=== PATIENT | male | born 1985 | race Caucasian/White ===

== ENCOUNTER 2017-01-30 19:11 | Emergency (ER) | payer OTHER ==
--- NOTE | 2017-01-30 20:51 | ED ORDER SUMMARY ---
..... Patient: CAITLYN SOOD [facility] VisitID: [id number] [place] [address] 31y, M Registration Date/Time: 01/30/2017 ORDER SHEET Weight: 68.0 kg (stated) Allergies: No Known Drug Allergy GENERAL ORDERS: GC/Chlamydia, Urine (Urine, Clean Catch) (urine) Urgent (19:40 01/30/2017 HBivens A.R.N.P.) (Ack 19:42 PWeiler ER Tech1) (19:43 PWeiler ER Tech1) UA-Culture if indicated Urgent (19:41 01/30/2017 HBivens A.R.N.P.) (Ack 19:42 PWeiler ER Tech1) (19:42 PWeiler ER Tech1) MEDICATION ORDERS: Rocephin IM 250 mg (NOW) (19:41 01/30/2017 HBivens A.R.N.P.) (20:02 LWhaljamshid R.N.) IV FLUIDS: ORDER SHEET NOTES: [Electronically signed by Martine Montilla.R.N.P. (21:20 01/30/2017)] [Electronically signed by Celina Christian R.N. (22:59 01/30/2017)] [Electronically locked/signed by Celina Christian R.N. (22:59 01/30/2017)]
--- NOTE | 2017-01-30 20:51 | ED CLINICAL REPORT ---
Clinical Report - Physicians/Mid Levels [facility] [address] [place] [address] 01/30/2017 19:12 Patient: CAITLYN SOOD Time Seen: 1925; initial patient contact, initial documentation, patient care assumed. Arrived- By private vehicle. Historian- patient. HISTORY OF PRESENT ILLNESS Chief Complaint: DYSURIA. This started about 2 - 3 days ago and is still present. The problem is described as mild. The patient has had a scant amount of thick penile discharge (green). He has had burning discomfort with urination. It is described as " painful " and has occurred after urination. No urinary frequency, genital lesion, testicular pain, urgency of urination or flank pain. No Dominguez catheter problem or inguinal swelling. Able to void. Not voiding only small amounts. The patient has had unprotected intercourse with multiple partners (got tested for std's approx x2 years ago, clear, has had x2 partners since). He has not had an exposure to a sexually transmitted disease. No homosexual activity. Similar symptoms previously: None. Recent medical care: Not recently seen/assessed. REVIEW OF SYSTEMS No fever, flank pain, hematuria, abdominal pain or vomiting. No diarrhea, chest pain or difficulty breathing. All systems otherwise negative, except as recorded above. PAST HISTORY See nurses notes. ( PROBLEMS: Fractured Phalanx (Finger). Herditary Spherocytosis. --19:18 Celina Christian, R.N. ADDITIONAL SURGERIES: Cholecystectomy. --19:18 Celina Christian, R.N.). SOCIAL HISTORY Never smoker. Occasional alcohol use. No drug use. No recent travel. Is a local resident. FAMILY HISTORY Negative. ADDITIONAL NOTES The nursing notes have been reviewed with agreement regarding the chief complaint, HPI, ROS, PMH and patient medications and allergies. PHYSICAL EXAM Vital Signs: 01/30/2017 19:18 BP: 158/96. HR: 86. RR: 18. O2 saturation: 100%. Temp: 98.2 F. Have been reviewed as abnormal and appear to be correct. Hypertensive. Heart rate normal. Respiratory rate normal. Temperature normal. Oxygen saturation normal. Appearance: Alert. Oriented X3. No acute distress. ENT: Normal external inspection. Pharynx normal. Neck: Neck supple. CVS: Heart sounds normal. Respiratory: No respiratory distress. Breath sounds normal. Abdomen: Soft and nontender. Bowel sounds normal. No organomegaly. No mass. Back: Normal external inspection. : Testes descended. Abnormal genitalia. A scant amount of clear urethral discharge. 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 Skin: Skin warm and dry. Normal skin color. No rash. Normal skin turgor. Extremities: Extremities exhibit normal ROM. No lower extremity edema. Neuro: Oriented X 3. No motor deficit. No sensory deficit. LABS, X-RAYS, AND EKG Laboratory Tests: UA-Culture if indicated: (GAURAV: 01/30/2017 19:24) ( MsgRcvd 01/30/2017 20:27) Final results Test Result Flag Units (Reference) URINE COLOR LIGHT YELLOW URINE APPEARANCE CLEAR URINE GLUCOSE NEGATIVE (NEGATIVE) URINE BILIRUBIN NEGATIVE (NEGATIVE) URINE KETONE NEGATIVE (NEGATIVE) URINE SPECIFIC GRAVITY <= 1.005 L (1.010-1.030) URINE PH 7.5 (5.0-8.0) URINE PROTEIN NEGATIVE (NEGATIVE) URINE UROBILINOGEN 1.0 EU/dL (0.2-1.0) URINE NITRITE NEGATIVE (NEGATIVE) URINE BLOOD NEGATIVE (NEGATIVE) URINE LEUK ESTERASE NEGATIVE (NEGATIVE) URINE RBC NONE SEEN rbc/hpf (0-1) URINE WBC RARE wbc/hpf (0-1) URINE EPITHELIAL CELLS RARE EPI/hpf (0-5) URINE BACTERIA NONE SEEN (NONE SEEN) URINE COMMENT CULT NOT INDICATED URINE CULTURES ARE SET-UP BASED ON THE FOLLOWING CRITERIA:POSITIVE NITRITEPOSITIVE LEUKOCYTE ESTERASEGREATER THAN 10 WHITE BLOOD CELLSMODERATE (2+) OR GREATER BACTERIA . PROGRESS AND PROCEDURES Course of Care: tx options discussed with std tx now or waiting for urine cx, decided to pretreat. Patient counseled in person regarding the patient's stable condition, test results and diagnosis. 2039. Differential Diagnosis: Other possible considerations: uti, std, pyelo, urosepsis, prostatitis, epidydimitis. Above considerations are based on history, physical exam, reassessment and laboratory data. Differential diagnosis was discussed with patient. Disposition: Discharged home in good and improved condition (20:51). Condition: good and stable. CLINICAL IMPRESSION Acute nonspecific urethritis INSTRUCTIONS Warnings: GENERAL WARNINGS: Return or contact your physician immediately if your condition worsens or changes unexpectedly, if not improving as expected, or if other problems arise. Specifically return if problem worsens. Prescription Medications: Zithromax 500 mg tablets: take 2 orally today, followed by 2 orally every day. Total course 1 day. No refills. Cipro 500 mg: take 1 tab orally every 12 hours for 10 days. Dispense twenty (20). No refills. Substitution is permissible. Follow-up: Follow up with your doctor in about three days as needed. Call for an appointment. Summary of care provided to patient. Understanding of the discharge instructions verbalized by patient. (Electronically signed by Martine Montilla A.R.N.P. 01/30/2017 21:20)
--- NOTE | 2017-01-30 20:51 | ED ORDER SUMMARY ---
..... Patient: CAITLYN SOOD OrderSheet [facility] VisitID: [id number] [place] [address] 31y, M Registration Date/Time: 01/30/2017 ORDER SHEET Weight: 68.0 kg (stated) Allergies: No Known Drug Allergy GENERAL ORDERS: GC/Chlamydia, Urine (Urine, Clean Catch) (urine) Urgent (19:40 01/30/2017 HBivens A.R.N.P.) (Ack 19:42 PWeiler ER Tech1) (19:43 PWeiler ER Tech1) UA-Culture if indicated Urgent (19:41 01/30/2017 HBivens A.R.N.P.) (Ack 19:42 PWeiler ER Tech1) (19:42 PWeiler ER Tech1) MEDICATION ORDERS: Rocephin IM 250 mg (NOW) (19:41 01/30/2017 HBivens A.R.N.P.) (20:02 LWhaljamshid R.N.) IV FLUIDS: ORDER SHEET NOTES: [Electronically signed by Martine Montilla.R.N.P. (21:20 01/30/2017)] [Electronically signed by Celina Christian R.N. (22:59 01/30/2017)] [Electronically locked/signed by Celina Christian R.N. (22:59 01/30/2017)]
--- NOTE | 2017-01-30 20:51 | ED NURSING NOTES ---
Clinical Report - Nurses [facility] [place] [address] 01/30/2017 19:12 [id number] Triage time 19:18 Jan 30 2017. Acuity: LEVEL 3. Chief Complaint: ABDOMINAL PAIN. SEN COMA SCORE: Sen Coma Scale: 15- eyes open spontaneously (4); best verbal response- oriented x 4 (5); best motor response- obeys commands (6). --19:25 Celina Christian R.N. 19:18 01/30/17. BP: 158/96. HR: 86. RR: 18. O2 saturation: 100%. Temp: 98.2 F. Pain level now 2/10. --19:25 Celina Christian R.N. Weight: 68 kg stated. Height/Length: 72 inches Per Patient. BMI: 20.3. --19:23 Celina Christian R.N. Medications None. --19:22 Celina Christian R.N. Allergies No Known Drug Allergy. --19:18 Celina Christian R.N. History Arrived by private vehicle. Historian: patient. This started today. ( Pain with urination at the end of urination he states he feels a stinging pain.). He has had abdominal pain. No nausea, vomiting, diarrhea, constipation or fever. 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 PAST MEDICAL HX: Gallstones. No history of diabetes mellitus. No history of gastroesophageal reflux disease or peptic ulcer disease. Immunizations: up-to-date. ( Does have unprotected sex but with same partner for one year.). SOCIAL HX: Never smoker. Alcohol use; consumes beer weekly. No drug use. No known contact with a sick individual. SELF HARM ASSESSMENT: A self harm assessment was performed. The patient answered "no" to the question "Have you recently felt down, depressed, or hopeless?" and "Do you have thoughts of harming or killing yourself?". FALL RISK ASSESSMENT: Fall risk assessment completed. No fall risk identified. NUTRITIONAL RISK ASSESSMENT: The nutritional risk assessment revealed no deficiencies. FUNCTIONAL ASSESSMENT: Functional assessment: no impairments noted. LEARNING NEEDS ASSESSMENT: The learning needs assessment revealed no barriers. ABUSE ASSESSMENT: Abuse assessment: (yes) The patient was asked "Do you feel safe in your home?". SKIN INTEGRITY ASSESSMENT: Skin integrity risk assessment completed. No skin integrity risk identified. --19:25 Celina Christian R.N. PROBLEMS: Fractured Phalanx (Finger). Herditary Spherocytosis. --19:18 Celina Christian R.N. ADDITIONAL SURGERIES: Cholecystectomy. --19:18 Celina Christian R.N. Interventions ID band on patient. --19:25 Celina Christian R.N. PHYSICAL ASSESSMENT Ambulatory to room. ( States possible discharge from penis unsure if it is a little void left over or discharge.). GENERAL / NEURO / PSYCH: Alert. Oriented X 4. Appears in no acute distress. HEENT: Mucous membranes are pink. RESPIRATORY: Respirations not labored. Breath sounds within normal limits. CVS: Normal sinus rhythm noted. Capillary refill less than 2 seconds. GI / : Abdomen soft and nontender. Bowel sounds within normal limits. ( Last BM today and normal). SKIN: Skin is warm and dry. --19:27 Celina Christian R.N. NURSING PROGRESS NOTES The initial plan of care for this patient includes an assessment with efforts to address patient positioning and appropriate ambient lighting; impairment of the genitourinary system. Pulse oximeter and NIBP monitor placed on patient. Patient gowned. Head of bed elevated 90 degrees. Reassurance given. Call light placed in reach. Side rails up x 1. Bed placed in lowest position. Brakes of bed on. --19:28 Celina Christian R.N. 19:28 01/30/17. BP: 144/89. HR: 87. RR: 18. O2 saturation: 100%. --19:29 Celina Christian R.N. 20:02 01/30/2017 Rocephin (CefTRIAXone Sodium) IM 250 mg given. Given in the right deltoid. Allergies verified and confirmed 5 rights. --20:02 Celina Christian R.N. DISPOSITION / DISCHARGE Departure time: 21:04 Jan 30 2017. Condition at departure: improved. No learning barriers present. Discharge instructions provided and reviewed with the patient. Reviewed warnings. Reviewed medication(s). Treatments reviewed. Reviewed referrals. Patient verbalized understanding. Written instructions provided in Divehi. The patient was discharged home. He left the Emergency Department ambulatory and via private vehicle. Patient driving. --21:04 Celina Christian R.N. 21:03 01/30/17. BP: 136/88. HR: 88. RR: 18. O2 saturation: 100%. Temp: 98.4 F. Pain level now 12/14. --21:04 Celina Christian R.N. Locked/Released at 01/30/2017 22:59 by Celina Christian R.N.
--- NOTE | 2017-01-30 20:51 | ED NURSING NOTES ---
Clinical Report - Nurses [facility] [place] [address] 01/30/2017 19:12 [id number] Triage time 19:18 Jan 30 2017. Acuity: LEVEL 3. Chief Complaint: ABDOMINAL PAIN. SEN COMA SCORE: Sen Coma Scale: 15- eyes open spontaneously (4); best verbal response- oriented x 4 (5); best motor response- obeys commands (6). --19:25 Celina Christian R.N. 19:18 01/30/17. BP: 158/96. HR: 86. RR: 18. O2 saturation: 100%. Temp: 98.2 F. Pain level now 2/10. --19:25 Celina Christian R.N. Weight: 68 kg stated. Height/Length: 72 inches Per Patient. BMI: 20.3. --19:23 Celina Christian R.N. Medications None. --19:22 Celina Christian R.N. Allergies No Known Drug Allergy. --19:18 Celina Christian R.N. History Arrived by private vehicle. Historian: patient. This started today. ( Pain with urination at the end of urination he states he feels a stinging pain.). He has had abdominal pain. No nausea, vomiting, diarrhea, constipation or fever. 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 PAST MEDICAL HX: Gallstones. No history of diabetes mellitus. No history of gastroesophageal reflux disease or peptic ulcer disease. Immunizations: up-to-date. ( Does have unprotected sex but with same partner for one year.). SOCIAL HX: Never smoker. Alcohol use; consumes beer weekly. No drug use. No known contact with a sick individual. SELF HARM ASSESSMENT: A self harm assessment was performed. The patient answered "no" to the question "Have you recently felt down, depressed, or hopeless?" and "Do you have thoughts of harming or killing yourself?". FALL RISK ASSESSMENT: Fall risk assessment completed. No fall risk identified. NUTRITIONAL RISK ASSESSMENT: The nutritional risk assessment revealed no deficiencies. FUNCTIONAL ASSESSMENT: Functional assessment: no impairments noted. LEARNING NEEDS ASSESSMENT: The learning needs assessment revealed no barriers. ABUSE ASSESSMENT: Abuse assessment: (yes) The patient was asked "Do you feel safe in your home?". SKIN INTEGRITY ASSESSMENT: Skin integrity risk assessment completed. No skin integrity risk identified. --19:25 Celina Christian R.N. PROBLEMS: Fractured Phalanx (Finger). Herditary Spherocytosis. --19:18 Celina Christian R.N. ADDITIONAL SURGERIES: Cholecystectomy. --19:18 Celina Christian R.N. Interventions ID band on patient. --19:25 Celina Christian R.N. PHYSICAL ASSESSMENT Ambulatory to room. ( States possible discharge from penis unsure if it is a little void left over or discharge.). GENERAL / NEURO / PSYCH: Alert. Oriented X 4. Appears in no acute distress. HEENT: Mucous membranes are pink. RESPIRATORY: Respirations not labored. Breath sounds within normal limits. CVS: Normal sinus rhythm noted. Capillary refill less than 2 seconds. GI / : Abdomen soft and nontender. Bowel sounds within normal limits. ( Last BM today and normal). SKIN: Skin is warm and dry. --19:27 Celina Christian R.N. NURSING PROGRESS NOTES The initial plan of care for this patient includes an assessment with efforts to address patient positioning and appropriate ambient lighting; impairment of the genitourinary system. Pulse oximeter and NIBP monitor placed on patient. Patient gowned. Head of bed elevated 90 degrees. Reassurance given. Call light placed in reach. Side rails up x 1. Bed placed in lowest position. Brakes of bed on. --19:28 Celina Christian R.N. 19:28 01/30/17. BP: 144/89. HR: 87. RR: 18. O2 saturation: 100%. --19:29 Celina Christian R.N. 20:02 01/30/2017 Rocephin (CefTRIAXone Sodium) IM 250 mg given. Given in the right deltoid. Allergies verified and confirmed 5 rights. --20:02 Celina Christian R.N. DISPOSITION / DISCHARGE Departure time: 21:04 Jan 30 2017. Condition at departure: improved. No learning barriers present. Discharge instructions provided and reviewed with the patient. Reviewed warnings. Reviewed medication(s). Treatments reviewed. Reviewed referrals. Patient verbalized understanding. Written instructions provided in Polish. The patient was discharged home. He left the Emergency Department ambulatory and via private vehicle. Patient driving. --21:04 Celina Christian R.N. 21:03 01/30/17. BP: 136/88. HR: 88. RR: 18. O2 saturation: 100%. Temp: 98.4 F. Pain level now 12/14. --21:04 Celina Christian R.N. Locked/Released at 01/30/2017 22:59 by Celina Christian R.N.
--- NOTE | 2017-01-30 22:59 | ED DISCHARGE INSTRUCTIONS ---
Patient: CAITLYN SOOD General Instructions [facility] VisitID: [id number] [place] [address] 31y, M Registration Date/Time: 01/30/2017 Acute nonspecific urethritis INSTRUCTIONS Warnings: GENERAL WARNINGS: Return or contact your physician immediately if your condition worsens or changes unexpectedly, if not improving as expected, or if other problems arise. Specifically return if problem worsens. Prescription Medications: Zithromax 500 mg tablets: take 2 orally today, followed by 2 orally every day. Total course 1 day. No refills. Cipro 500 mg: take 1 tab orally every 12 hours for 10 days. Dispense twenty (20). No refills. Substitution is permissible. Follow-up: Follow up with your doctor in about three days as needed. Call for an appointment. Summary of care provided to patient. Understanding of the discharge instructions verbalized by patient. ADDITIONAL INFORMATION Urethritis [Male, Infection Vs. Chemical] In a man, the urethra is the channel in the penis that passes urine. Urethritis is an inflammation of the urethra. This is usually due to infection or chemical irritation. It causes pain and burning when passing urine. There may also be some discharge from the urethral opening. The cause for your urethritis is not certain. It is usually due to infection or chemical irritation. A chemical irritation causes temporary inflammation and pain with urination. Soaps, lotions, colognes, as well as contraceptive jellies, creams or foams can cause this. Symptoms improve within three days after last exposure. A sexually transmitted disease (STD) from Gonorrhea or Chlamydia is the most common cause for an infection of the urethra. If your doctor thinks you may have an STD, a culture may be taken. It will take about three days to get a culture result. Antibiotics may be started before the culture test returns. A bladder infection is a common cause for pain and burning when passing urine, but it causes no discharge from the urethra. Urethritis becomes "chronic" when it lasts for weeks or months, or goes away and comes back. This kind of urethritis may be caused by a narrowed urethra or an untreated bacterial infection. A referral to a specialist may be needed to diagnose and treat chronic dysuria. Home Care: 1) Avoid any chemical agents that you suspect may be causing your symptoms. 2) If you were given a prescription medicine, take as directed. 3) If an STD culture was taken, avoid sexual activity until you have been told that it is negative (no infection). Then, follow your doctor's advice to treat your condition. 4) If an STD culture was done and it is positive: Both you and your sexual partner need to be treated, even if your partner has no symptoms. Contact your doctor or go to an urgent care clinic or the Public Health Department to be examined and treated. Avoid sexual activity until both you and your partner have completed all antibiotic medicine and told that you are no longer contagious. Learn about safe sex practices and use these in the future. The safest sex is with a partner who has tested negative and only has sex with you. Condoms offer protection from spreading some sexually transmitted diseases including Gonorrhea, Chlamydia and HIV, but are not a guarantee. Follow Up with your doctor as advised by our staff. If a culture was taken, call in three days for the result, or as directed. If diagnosed with an STD, follow up with your doctor or the Public Health Department for complete STD screening, including HIV testing. For more information, contact the National STD Hotline: . Get Prompt Medical Attention if any of the following occur: -- No improvement after three days of treatment -- Inability to urinate due to pain -- Rash or joint pain -- Painful sores on the penis -- Enlarged painful lymph nodes (lumps) in the groin -- Testicle pain or swelling of the scrotum Azithromycin Oral tablet What is this medicine? AZITHROMYCIN (az ith larry MYE sin) is a macrolide antibiotic. It is used to treat or prevent certain kinds of bacterial infections. It will not work for colds, flu, or other viral infections. How should I use this medicine? Take this medicine by mouth with a full glass of water. Follow the directions on the prescription label. The tablets can be taken with food or on an empty stomach. If the medicine upsets your stomach, take it with food. Take your medicine at regular intervals. Do not take your medicine more often than directed. Take all of your medicine as directed even if you think your are better. Do not skip doses or stop your medicine early. Talk to your cocoa butter filter operator regarding the use of this medicine in children. Special care may be needed. What side effects may I notice from receiving this medicine? Side effects that you should report to your doctor or health intensive care nurse as soon as possible: allergic reactions like skin rash, itching or hives, swelling of the face, lips, or tongue confusion, nightmares or hallucinations dark urine difficulty breathing hearing loss irregular heartbeat or chest pain pain or difficulty passing urine redness, blistering, peeling or loosening of the skin, including inside the mouth white patches or sores in the mouth yellowing of the eyes or skin Side effects that usually do not require medical attention (report to your doctor or health intensive care nurse if they continue or are bothersome): diarrhea dizziness, drowsiness headache stomach upset or vomiting tooth discoloration vaginal irritation What may interact with this medicine? Do not take this medicine with any of the following medications: lincomycin This medicine may also interact with the following medications: amiodarone antacids cyclosporine digoxin magnesium nelfinavir phenytoin warfarin What if I miss a dose? If you miss a dose, take it as soon as you can. If it is almost time for your next dose, take only that dose. Do not take double or extra doses. Where should I keep my medicine? Keep out of the reach of children. Store at room temperature between 15 and 30 degrees C (59 and 86 degrees F). Throw away any unused medicine after the expiration date. What should I tell my health care provider before I take this medicine? They need to know if you have any of these conditions: kidney disease liver disease irregular heartbeat or heart disease an unusual or allergic reaction to azithromycin, erythromycin, other macrolide antibiotics, foods, dyes, or preservatives or trying to get breast-feeding What should I watch for while using this medicine? Tell your doctor or health intensive care nurse if your symptoms do not improve. Do not treat diarrhea with over the counter products. Contact your doctor if you have diarrhea that lasts more than 2 days or if it is severe and watery. This medicine can make you more sensitive to the sun. Keep out of the sun. If you cannot avoid being in the sun, wear protective clothing and use sunscreen. Do not use sun lamps or tanning beds/booths. Ciprofloxacin Hydrochloride Oral tablet What is this medicine? CIPROFLOXACIN (sip larry FLOX a sin) is a quinolone antibiotic. It is used to treat certain kinds of bacterial infections. It will not work for colds, flu, or other viral infections. How should I use this medicine? Take this medicine by mouth with a glass of water. Follow the directions on the prescription label. Take your medicine at regular intervals. Do not take your medicine more often than directed. Take all of your medicine as directed even if you think your are better. Do not skip doses or stop your medicine early. You can take this medicine with food or on an empty stomach. It can be taken with a meal that contains dairy or calcium, but do not take it alone with a dairy product, like milk or yogurt or calcium-fortified juice. A special MedGuide will be given to you by the pharmacist with each prescription and refill. Be sure to read this information carefully each time. Talk to your cocoa butter filter operator regarding the use of this medicine in children. Special care may be needed. What side effects may I notice from receiving this medicine? Side effects that you should report to your doctor or health intensive care nurse as soon as possible: - allergic reactions like skin rash, itching or hives, swelling of the face, lips, or tongue - breathing problems - confusion, nightmares or hallucinations - feeling faint or lightheaded, falls - irregular heartbeat - joint, muscle or tendon pain or swelling - pain or trouble passing urine -persistent headache with or without blurred vision - redness, blistering, peeling or loosening of the skin, including inside the mouth - seizure - unusual pain, numbness, tingling, or weakness Side effects that usually do not require medical attention (report to your doctor or health intensive care nurse if they continue or are bothersome): - diarrhea - nausea or stomach upset - white patches or sores in the mouth What may interact with this medicine? Do not take this medicine with any of the following medications: cisapride droperidol terfenadine tizanidine This medicine may also interact with the following medications: antacids caffeine cyclosporin didanosine (ddI) buffered tablets or powder medicines for diabetes medicines for inflammation like ibuprofen, naproxen methotrexate multivitamins omeprazole phenytoin probenecid sucralfate theophylline warfarin What if I miss a dose? If you miss a dose, take it as soon as you can. If it is almost time for your next dose, take only that dose. Do not take double or extra doses. Where should I keep my medicine? Keep out of the reach of children. Store at room temperature below 30 degrees C (86 degrees F). Keep container tightly closed. Throw away any unused medicine after the expiration date. What should I tell my health care provider before I take this medicine? They need to know if you have any of these conditions: -bone problems -cerebral disease -joint problems -irregular heartbeat -kidney disease -liver disease -myasthenia gravis -seizure disorder -tendon problems -an unusual or allergic reaction to ciprofloxacin, other antibiotics or medicines, foods, dyes, or preservatives - or trying to get -breast-feeding What should I watch for while using this medicine? Tell your doctor or health intensive care nurse if your symptoms do not improve. Do not treat diarrhea with over the counter products. Contact your doctor if you have diarrhea that lasts more than 2 days or if it is severe and watery. You may get drowsy or dizzy. Do not drive, use machinery, or do anything that needs mental alertness until you know how this medicine affects you. Do not stand or sit up quickly, especially if you are an older patient. This reduces the risk of dizzy or fainting spells. This medicine can make you more sensitive to the sun. Keep out of the sun. If you cannot avoid being in the sun, wear protective clothing and use sunscreen. Do not use sun lamps or tanning beds/booths. Avoid antacids, aluminum, calcium, iron, magnesium, and zinc products for 6 hours before and 2 hours after taking a dose of this medicine. You have been given the following additional information: Urethritis, Male (Infec Vs Inflam), Adult Azithromycin Oral tablet Ciprofloxacin Hydrochloride Oral tablet (Electronically signed by Martine Montilla A.R.N.P. 01/30/2017 21:20)
--- NOTE | 2017-01-30 23:00 | ED MAR SUMMARY ---
..... Medication Administration Record [facility] [address] [place] [address] Patient: CAITLYN SOOD Visit ID: [id number] 31y, M Weight: 68.0 kg Height/Length: 72 in BMI: 20.3 ALLERGIES: No Known Drug Allergy Given 20:02 01/30/2017 Celina Christian, RGiovannyNGiovanny Medication Administered: ROCEPHIN [IM] (CEFTRIAXONE SODIUM), Dose: 250 mg IM. Medication Ordered: Rocephin IM 250 mg (NOW).
--- NOTE | 2017-01-30 23:00 | ED MED RECONCILIATION SUMMARY ---
Patient: CAITLYN SOOD Medication Reconciliation Report [facility] VisitID: [id number] [address] [place] [address] 31y, M Registration Date/Time: 01/30/2017 Weight: 68.0 kg Height/Length: 72 in. BMI: 20.3 ALLERGIES: No Known Drug Allergy The patient's Home Medications are listed below: NONE. The source(s) of the original Home Medication information: Not obtained. The following Medications were given to the patient in the Emergency Department: Rocephin [IM] IM 250 mg, administered: 01/30/2017 8:02:00 PM The following Medications were prescribed to the patient: Zithromax 500 mg tablets: take 2 orally today, followed by 2 orally every day. Total course 1 day. No refills. -- Martine Montilla A.R.N.P. Cipro 500 mg: take 1 tab orally every 12 hours for 10 days. Dispense twenty (20). No refills. Substitution is permissible. -- Martine Montilla A.R.N.P.
--- NOTE | 2017-01-30 23:00 | ED MAR SUMMARY ---
..... Medication Administration Record [facility] [address] [place] [address] Patient: CAITLYN SOOD Visit ID: [id number] 31y, M Weight: 68.0 kg Height/Length: 72 in BMI: 20.3 ALLERGIES: No Known Drug Allergy Given 20:02 01/30/2017 Celina Christian, RGiovannyNGiovanny Medication Administered: ROCEPHIN [IM] (CEFTRIAXONE SODIUM), Dose: 250 mg IM. Medication Ordered: Rocephin IM 250 mg (NOW).
--- NOTE | 2017-01-30 23:00 | ED MED RECONCILIATION SUMMARY ---
Patient: CAITLYN SOOD Medication Reconciliation Report [facility] VisitID: [id number] [address] [place] [address] 31y, M Registration Date/Time: 01/30/2017 Weight: 68.0 kg Height/Length: 72 in. BMI: 20.3 ALLERGIES: No Known Drug Allergy The patient's Home Medications are listed below: NONE. The source(s) of the original Home Medication information: Not obtained. The following Medications were given to the patient in the Emergency Department: Rocephin [IM] IM 250 mg, administered: 01/30/2017 8:02:00 PM The following Medications were prescribed to the patient: Zithromax 500 mg tablets: take 2 orally today, followed by 2 orally every day. Total course 1 day. No refills. -- Martine Montilla A.R.N.P. Cipro 500 mg: take 1 tab orally every 12 hours for 10 days. Dispense twenty (20). No refills. Substitution is permissible. -- Martine Montilla A.R.N.P.
== END 2017-01-30 21:00 | disposition home or self-care (01) ==
LOC: ED SRH 19:11
DX: N34.1 Nonspecific urethritis (principal)
CPT/HCPCS: 90004; 91227; 91228